=== PATIENT | male | born 1980 | race Caucasian/White ===

== ENCOUNTER → 2022-10-01 | Outpatient (CLI) | payer OTHER ==
--- NOTE | 2022-10-01 18:23 | Diagnostic Imaging Report ---
CLINICAL INDICATION: Patient with right foot and ankle pain x 2 weeks after kicking post. EXAM: X-ray of the right ankle, 3 views. COMPARISON: None. FINDINGS: There is no acute fracture or dislocation. There is no significant bone or joint abnormality. Ankle mortise and syndesmotic joints are unremarkable. IMPRESSION: There is no acute fracture or dislocation. Dictated by: Dictated on workstation # [id number]
--- NOTE | 2022-10-01 18:23 | Diagnostic Imaging Report ---
INDICATION: Injury with pain. FINDINGS: Three view right foot shows no fracture, dislocation or acute bony irregularity. No gas or retained opaque foreign body. Articular surfaces smooth. IMPRESSION: Unremarkable three view right foot. Dictated by: Dictated on workstation # [id number]
== END ==
LOC: RAD FS 17:55
PROVIDERS: ATTEND Emergency Medicine
DX: M25.571 Pain in right ankle and joints of right foot (principal)
CPT/HCPCS: 73610; 73630